=== PATIENT | male | born 1980 | race Caucasian/White ===

== ENCOUNTER 2019-11-28 22:15 | Emergency (ER) | payer SELFPAY ==
[2019-11-28 22:20] VITALS: BP 161/116; RESP 18; O2SAT 100; BMI 24.4
--- NOTE | 2019-11-28 22:21 | ED_ITS ---
Entered by Twila Klein, acting as scribe for Juan Leonard MD HPI - Abdominal Pain General: Chief Complaint: Abdominal Pain Stated Complaint: possible kidney stone Time Seen by Provider: 11/28/19 22:20 Source: patient and family Mode of arrival: ambulatory Limitations: no limitations History of Present Illness: HPI narrative: 39 y/o male presents to the ED with complaint of kidney stone pain. Pt states he has a hx of stones. He thought he passed some small stones this weekend, but his pain returned this evening. reports onset of extreme pain around 2029. Pt has been unable to urinate and has been doubled over in pain. He states it is the worst in this RLQ and radiates into his back. MD elicited complaint: flank pain Pertinent past history: kidney stones Onset (ago): hour(s) Pain Consistency: constant Location: RLQ and R flank Severity: similar to previous episodes Quality: cramping and stabbing Relieving factors: nothing Associated Symptoms: Reports nausea and vomiting; Denies chills, diarrhea and fever(s) Review of Systems Const: Denies: fever or chills Eyes: Denies: change in vision ENMT: Denies: throat pain or mouth pain Card: Denies: chest pain Resp: Denies: shortness of breath GI: Reports: abdominal pain, nausea and vomiting; Denies: diarrhea : Reports: flank pain and difficulty urinating Musc: Reports: back pain; Denies: joint pain Skin/Breast: Denies: rash Neuro: Denies: headache or behavioral changes Psych: Denies: depression Endo: Denies: excessive urination Bong/Lymph: Denies: easy bruising All/Imm: Denies: hives Physical Exam Const: COMMON NORMALS: no apparent distress, oriented x3 and healthy appearing HENMT: COMMON NORMALS: normocephalic and external nose normal HEAD & SCALP: normocephalic NOSE: external nose normal Eye: COMMON NORMALS: PERRL PUPIL: Yes PERRL Neck/C-Spine: COMMON NORMALS: full ROM and no lymphadenopathy Chest: COMMONS NORMALS: inspection of chest normal Resp: COMMON NORMALS: normal respiratory effort, no use of accessory muscles and clear to auscultation bilaterally AUSCULTATION: clear to auscultation bilaterally Cardio: COMMON NORMALS: regular rate and regular rhythm RATE: regular rate RHYTHM: regular rhythm GI: COMMON NORMALS: soft to palpation and no masses PALPATION: Yes soft, Yes tender and Yes guarding Back/Pelvis: OTHER: right flank tenderness Extremity: COMMON NORMALS: normal to inspection, full ROM and normal capillary refill Neuro: COMMON NORMALS: oriented x3 Psych: COMMON NORMALS: mental status grossly normal and cooperative Skin: COMMON NORMALS: no rashes or lesions noted GENERAL SKIN EXAM: no rashes or lesions noted Course Vital Signs: Vital signs: Vital Signs Temperature 97.5 F L 11/28/19 23:02 Pulse Rate 71 11/29/19 00:11 Respiratory Rate 16 11/29/19 00:23 Blood Pressure 120/85 11/29/19 00:11 Pulse Oximetry 96 11/29/19 00:11 MDM - Abdominal Pain MDM Narrative: Medical decision making narrative: Patient presents here with flank pain and has a history of kidney stone. Patient's history and exam is consistent with a likely kidney stone. Patient's pain is improved here and he does have hematuria. He has no signs of infection. Patient is stable for discharge and will prescribe Rosewood and Flomax. Patient is to follow-up with Dr. Brito and is to return if worsening. Lab Data: Labs: Lab Results 11/28/19 Range/Units 23:45 Urine Color Yellow (Yellow) Urine Appearance Hazy A (CLEAR) Urine pH 5 (5-7) Ur Specific Gravit y 1.020 (1.005-1.030) Urine Protein Neg (Negative) Urine Glucose (UA) Norm (Normal) Urine Ketones 1+ H (Negative) Urine Occult Blood 3+ H (Negative) Urine Nitrate Negative (Negative) Urine Bilirubin Neg (NEGATIVE) Urine Urobilinogen Norm (Negative) mg/dL Ur Leukocyte Elham ase Negative (Negative) Urine RBC 15-25 H (0-2) /hpf Urine WBC 0-4 H (0-5) /hpf Ur Squamous Epith Cells 0-4 H (0-5) Urine Bacteria Trace (NONE) Urine Mucus 2+ Discharge Plan Discharge Patient Disposition: Home, Self-Care Clinical Impression: Calculus of kidney Condition: Stable Prescriptions: New Rosewood 5-325 mg tablet 1 tab PO Q6H PRN (Reason: pain) Qty: 14 RF: 0 Flomax 0.4 mg capsule 0.4 mg PO DAILY Qty: 5 RF: 0 Discharge Orders: Discharge Order (Routine); Ordered 11/29/19 Ordered By: Juan Leonard Referrals: Uzma Fernando, BURR PICKER-C [Family Provider] - Fer Brito MD [Physician] - 1-3 days Dunaway,DENNIS Monteiro [Primary Care Provider] - Discharge Diet: Advance as tolerated Discharge Activity: Resume usual activity Patient Instructions: Kidney Stones (ED) Coding Level of Care Code ED Administration Intern for Chg Fwd Exam Problem Focused The documentation recorded by the Ernie andersen Ashley, accurately reflects the service I personally performed and the decisions made by Horacio lechuga Korby, MD Nov 28, 2019 22:15
--- NOTE | 2019-11-28 22:22 | XR_ITS ---
WS: [id number] KU, 11/28/2019 Clinical Data: abd pain Comparison: None. Findings: There is a left upper quadrant calcification which could be in the left kidney. No abnormal intra-abd ominal masses are seen. The small bowel loops are located in the central portion ,of the abdomen whic h can be seen with a severe ileus. There is a moderate amount of fecal material in the colon. No obst ruction is seen. XR/XR KUB [id number] Impression: 1. Possible left renal calcification. 2. Prominent central small bowel loops which can be seen with a severe ileus.
[2019-11-28 22:58] VITALS: RESP 16
[2019-11-28] MEDS: HYDROmorphone 1 mg/mL INJ 1 mL IVP (22:58)
[2019-11-28] MEDS: ketorolac 30 mg/mL INJ IVP (22:59)
[2019-11-28] MEDS: sodium chloride 0.9% 1,000 ML 999 ML IV (23:00)
[2019-11-28] MEDS: ondansetron 2 mg/ML SDV 2 mL 4 MG IVP (23:00)
[2019-11-28 23:02] VITALS: BP 144/103; PULSE 70; RESP 16; TEMP 36.4; O2SAT 95
--- NOTE | 2019-11-28 23:45 | PC.NURSE ---
Patient was able to output enough urine for a urine analysis, it was labeled and taken to lab. Patient requested for more water, water was given.
[2019-11-29 00:11] VITALS: BP 120/85; PULSE 71; RESP 16; O2SAT 96
--- NOTE | 2019-11-29 00:13 | PC.NURSE ---
Patient stated that the pain is slowly starting to return and would like something to keep the pain down.
[2019-11-29 00:16] LABS: Add Urine Microscopic? YES; Bilirubin Urine Neg (NEGATIVE); Blood Urine 3+ (Negative); Glucose Urine UA Norm (Normal); Ketones Urine 1+ (Negative); Leukocyte Esterase Urine Negative (Negative); Nitrate Urine Negative (Negative); Protein Urine Neg (Negative); Urine Appearance Hazy (CLEAR); Urine Color Yellow (Yellow); Urobilinogen Urine Norm (Negative); pH Urine 5 (5-7)
[2019-11-29 00:23] VITALS: RESP 16
[2019-11-29] MEDS: HYDROmorphone 1 mg/mL INJ 1 mL 0.5 MG IVP (00:23)
[2019-11-29] MEDS: sodium chloride 0.9% 1,000 ML 999 ML IV (00:24)
[2019-11-29 00:25] LABS: Add Urine Culture? Yes; Bacteria Urine TRACE; Mucus Urine 2+; RBC Urine 15-25 /hpf (0-2); Squamous Epithelial Cell Urine 0-4 (0-5); WBC Urine 0-4 /hpf (0-5)
[2019-11-29 01:15] VITALS: BP 119/86; PULSE 72; RESP 16; O2SAT 94
--- NOTE | 2019-11-29 14:30 | DCPLANNER ---
closing manager had message to schedule a follow up appointment for patient with the office of Dr. Brito. closing manager called the office of Dr. Brito, spoke with Monika, gave clinic patients information. A follow up appointment is scheduled for Monday, December 02, 2019 patient is to be at hospital at 9:30 for an X-Ray, then go to Dr. Hardy office for appointment. Clinic will call patient with appointment information.
--- NOTE | 2019-12-04 15:14 | DCPLANNER ---
Patient did attend appointment scheduled for 12.02.[address] Brito.
== END 2019-11-29 01:15 | disposition home or self-care (01) ==
PROVIDERS: Emergency Provider Emergency Medicine; Family Provider Nurse Practitioner; PCP Nurse Practitioner Family
DX: N20.0 Calculus of kidney (principal)
CPT/HCPCS: 74018; 81003; 87086; 96360; 96374; 99282; J1170; J1885; J2405; J7030

== ENCOUNTER 2019-12-03 13:57 | Outpatient (CLI) | payer SELFPAY ==
--- NOTE | 2019-12-03 14:08 | XRR_ITS ---
PROCEDURE INFORMATION: Exam: XR Abdomen, 1 View Exam date and time: 12/03/2019 2:24 PM Age: 39 years old Clinical indication: Other: Flank pain; Additional info: Right flank pain, history of kidney stones TECHNIQUE: Imaging protocol: XR of the abdomen. Views: Frontal supine view of the abdomen. 1 View. COMPARISON: CR XR KUB [id number] 11/28/2019 10:45 PM FINDINGS: Gastrointestinal tract: Normal. No bowel dilation. Bones/joints: Unremarkable. XR/XR KUB [id number] IMPRESSION: No acute findings.
== END 2019-12-03 13:58 | disposition home or self-care (01) ==
LOC: RAD 14:04
PROVIDERS: Family Provider Nurse Practitioner; Visit Provider Urology
DX: R10.9 Unspecified abdominal pain (principal)
CPT/HCPCS: 74018; 81001

== ENCOUNTER 2019-12-11 08:59 | Outpatient (CLI) | payer SELFPAY ==
--- NOTE | 2019-12-11 09:10 | CT_ITS ---
WS: [id number] CT ABDOMEN PELVIS TECHNIQUE: Noncontrast CT of the abdomen and pelvis with coronal and sagittal reformatted images. CLINICAL INFORMATION: FLANK PAIN COMPARISON: 9 8013 DLP: 878.[address] scans at [facility] use at least one of these dose optimization techniques: automat ed exposure control; mA and/or kV adjustment per patient size (includes targeted exams where dose is matched to clinical indication); or iterative reconstruction. FINDINGS: Noncontrast liver is normal. Normal spleen. Tiny esophageal hiatal hernia. Lung bases are well aerate d. Adrenal glands are normal. No adenopathy in the upper abdomen. Normal gallbladder. Bilateral renal cysts. No hydronephrosis. 2.1 cm right renal cyst. This is unchanged from previous. Smaller left carmina al cyst. Nonobstructing right calyceal tip calculus. Mild dilatation of the right distal ureter with small calculus at the right UVJ measuring 3.2 mm. Mil d dilatation of the right extrarenal pelvis. No obstructing left renal parenchymal or ureteral calcul i. Sigmoid diverticulosis. No evidence of acute diverticulitis. No evidence of small or large bowel obst ruction. CT/CT kidney stone [id number] IMPRESSION: 1. 3.2 mm obstructing right UVJ calculus with mild right ureterectasis. Mild d ilatation of the right extra renal pelvis. 2. Small bilateral renal cysts the largest in the right measuring 2.0 cm. 3. Small esophageal hiatal hernia. 4. Diverticulosis. No evidence of acute diverticulitis. 5. Normal caliber abdominal aorta.
== END 2019-12-11 09:00 | disposition home or self-care (01) ==
PROVIDERS: Family Provider Nurse Practitioner; Visit Provider Urology
DX: N20.1 Calculus of ureter (principal); N13.4 Hydroureter; N28.1 Cyst of kidney, acquired; K44.9 Diaphragmatic hernia without obstruction or gangrene; K57.90 Diverticulosis of intestine, part unspecified, without perforation or abscess without bleeding
CPT/HCPCS: 74176; 81001

== ENCOUNTER 2019-12-24 00:27 | Emergency (ER) | payer SELFPAY ==
[2019-12-24] VITALS (29 sets, daily range): BP systolic 129–176; BP diastolic 83–114; PULSE 74–77; RESP 16–20; TEMP 36.7; O2SAT 93–100; BMI 24.4
--- NOTE | 2019-12-24 00:39 | W.ED.ABDPA2 ---
HPI - Abdominal Pain General: Chief Complaint: Abdominal Pain Stated Complaint: KIDNEY STONE Time Seen by Provider: 12/24/19 00:37 History of Present Illness: HPI narrative: Patient is a 39-year-old male comes to the ED with right lower quadrant abdominal pain. Patient does have a history of kidney stones. Patient was seen here [address] showed kidney stone in the right uretervesicular junction. Patient saw Dr. Brito and he is been taking Flomax in an attempt to pass the stone himself. Patient states that intense pain started last night. Patient states pain is similar to his prior kidney stone. Pain is on the right flank. He states he had chills last night. He states he also has some right lower quadrant pain as well. Denies any fever, shortness of breath, chest pain, vomiting, diarrhea, constipation, dysuria, hematuria. Review of Systems General: Reports: 10 or more systems reviewed and unremarkable except in HPI and below PFSH ED PFSH: Statuses (acute, chronic, etc) shown below reflect problem list status as previously entered and may not be historically accurate Medical History Calculus of kidney Surgical History H/O shoulder surgery Family History Family/Other Cancer Prostate cancer CAD (coronary artery disease) Grandfather Prostate cancer Mother , AT AGE 31 Heart attack Social History Smoking and tobacco status: never smoked Alcohol intake: current Alcohol intake frequency: holidays/special occasions only Marital status: Current occupational status: employed Physical Exam Narrative: EXAM NARRATIVE: Patient is a 39-year-old male who was fidgeting and having trouble sitting still when I came into the exam room. He appeared to be in acute pain. Const: COMMON NORMALS: oriented x3 HENMT: COMMON NORMALS: normocephalic HEAD & SCALP: normocephalic MOUTH: oral and palatal mucosa normal THROAT: posterior oropharynx normal and uvula midline Neck/C-Spine: COMMON NORMALS: supple GENERAL: Yes normal visual inspection Resp: COMMON NORMALS: normal respiratory effort, no retractions, no use of accessory muscles and clear to auscultation bilaterally AUSCULTATION: clear to auscultation bilaterally Cardio: COMMON NORMALS: regular rate, regular rhythm, S1 normal heart sound, S2 normal heart sound, no gallops, no clicks, no murmurs and peripheral pulses 2+ throughout RATE: regular rate RHYTHM: regular rhythm HEART SOUNDS: S1 normal and S2 normal PERIPHERAL PULSES: pulses 2+ throughout GI: COMMON NORMALS: normal to inspection, nondistended, normoactive bowel sounds, soft to palpation and no masses PALPATION: Yes soft and Yes tender Details: RLQ : BLADDER/KIDNEY EXAM: Yes CVA tenderness Back/Pelvis: GENERAL BACK: Yes CVA tenderness CVA tenderness: right Extremity: COMMON NORMALS: normal to inspection Neuro: COMMON NORMALS: oriented x3 GAIT: Yes normal gait Skin: COMMON NORMALS: no rashes or lesions noted GENERAL SKIN EXAM: no rashes or lesions noted Course Consultations: Consultation #1: I spoke with Dr. Brito about the patient's case tonight. He said if the patient's pain is controlled and he wants to go home he would be fine with that. The patient can call his office in the morning to set up an appointment. Time: 02:50 Vital Signs: Vital signs: Vital Signs Temperature 98.1 F 12/24/19 00:29 Pulse Rate 74 12/24/19 03:12 Respiratory Rate 16 12/24/19 03:12 Blood Pressure 130/83 12/24/19 03:12 Pulse Oximetry 98 12/24/19 03:12 MDM - Abdominal Pain MDM Narrative: Medical decision making narrative: Patient is a 39-year-old male comes into the ED with right flank pain. 3 weeks ago patient was seen in the ED for right flank pain and diagnosed with calculi and right UVJ. He was seen by Dr. Brito the past couple weeks and he tried to pass kidney stones himself. Patient was taking Flomax. Last night and tonight the patient had intense right flank and right lower quadrant pain. CT of the abdomen and pelvis was performed and it showed that the renal calculi has not moved the last [address] Brito about patient's case tonight and he said patient Could be discharged if pain is controlled and pt can call his office in the morning to set up an appointment. Patient was discharged with a prescription for Toradol and told to call Dr. yo's office in the morning. Patient understood and agreed with plan. Lab Data: Attestation: I reviewed the patient's lab results. Labs: Lab Results 12/24/19 12/24/19 12/24/19 Range/Units 00:43 00:43 01:30 WBC 12.1 H (4.0-10.0) 10^3/ uL RBC 5.05 (4.1-5.3) 10^6/u L Hgb 15.8 (11.7-16.6) g/dL Hct 46.7 (42.0-52.0) % MCV 92.5 (80-94) fL MCH 31.3 (28.0-34.0) pg MCHC 33.8 (30.0-36.0) g/dL RDW 11.6 L (12.1-15.1) % Plt Count 271 (130-400) 10^3/c mm MPV 9.7 (7.4-10.4) fL Neut % (Auto) 73.0 % Lymph % (Auto) 15.9 % Ellsworth % (Auto) 9.8 % Eos % (Auto) 0.4 % Baso % (Auto) 0.7 % Neut # (Auto) 8.8 H (1.8-7.7) 10^3/u L Lymph # (Auto) 1.9 (0.8-4.8) 10^3/u L Ellsworth # (Auto) 1.2 H (0.2-0.9) 10^3/u L Eos # (Auto) 0.1 (0.0-0.8) 10^3/u L Baso # (Auto) 0.1 (0.0-0.1) 10^3/u L Nucleated RBC % (a uto) 0 % Nucleated RBCs # 0.0 /100WBC Sodium 135 L (136-145) mmol/L Potassium 3.6 (3.5-5.1) mmol/L Chloride 94 L (98-107) mmol/L Carbon Dioxide 25 (22-29) mmol/L Anion Gap 19.6 H (5-19) BUN 15 (6-20) mg/dL Creatinine 1.2 (0.7-1.2) mg/dL GFR Calculation 66.7 L (90-130) mL/min Glucose 120 H (65-115) mg/dL Calcium 10.0 (8.5-10.5) mg/dL Total Bilirubin 0.9 (0.15-1.2) mg/dL AST 36 (0-40) U/L ALT 53 H (0-41) U/L Alkaline Phosphata se 81 (40-130) IU/L Total Protein 8.1 (6.6-8.7) g/dL Albumin 4.8 (3.5-5.2) g/dL Globulin 3.3 (1.3-4.6) g/dL Lipase 29 (13-60) U/L Urine Color Yellow (Yellow) Urine Appearance Clear (CLEAR) Urine pH 6.5 (5-7) Ur Specific Gravit y 1.015 (1.005-1.030) Urine Protein Neg (Negative) Urine Glucose (UA) Norm (Normal) Urine Ketones 1+ H (Negative) Urine Occult Blood 3+ H (Negative) Urine Nitrate Negative (Negative) Urine Bilirubin Neg (NEGATIVE) Urine Urobilinogen Norm (Negative) mg/dL Ur Leukocyte Elham ase Negative (Negative) Urine RBC >100 H (0-2) /hpf Urine WBC None (0-5) /hpf Ur Squamous Epith Cells 0-4 H (0-5) Urine Bacteria 1+ H (NONE) Urine Mucus 1+ Imaging Data ^: CT Abd/Pel: Attestation: I personally reviewed and interpreted this imaging study as follows: Radiologist's impression: [place] [address] CT Scan Report Signed Patient: Aquilino Bauman Unit #: [id number] : 1980 Age/Sex: 39 / M ADM Date: 12/24/19 Loc: ER Room/Bed: Attending Dr: Ordering Provider/Ordering MD: Harley Catalan Date of Service: 12/24/19 Procedure(s): CT abdomen pelvis w con* [id number] Accession Number(s): [id number] Report Number: [id number] PROCEDURE INFORMATION: Exam: CT Abdomen And Pelvis With Contrast Exam date and time: 12/24/2019 1:26 AM Age: 39 years old Clinical indication: Abdominal pain; Flank; Right; Additional info: Rlq and right flank pain TECHNIQUE: Imaging protocol: Computed tomography of the abdomen and pelvis with intravenous contrast. Total DLP: 657.01 mGy-cm Radiation optimization: All CT scans at this facility use at least one of these dose optimization techniques: automated exposure control; mA and/or kV adjustment per patient size (includes targeted exams where dose is matched to clinical indication); or iterative reconstruction. Contrast material: OMNI 300; Contrast volume: 95 ml; Contrast route: IV; COMPARISON: CT abdomen pelvis w con* [id number] 07/21/2014 2:33 PM FINDINGS: Mild atelectasis at bilateral lung bases. The liver is diffusely hypodense relative to the spleen, consistent with fatty infiltration. The gallbladder, spleen, pancreas, and adrenal glands are unremarkable. There is a 2.2 cm cyst in the right kidney upper pole. There is a 0.3 cm stone in the right kidney lower pole. There is a 0.4 cm stone in the right lower ureter near the ureterovesicular junction (series 2, image 80). Mild right hydronephrosis. Moderate inflammatory change of the right perinephric fat. Several cysts in the left kidney, largest 2 cm in the upper pole. The appendix is not identified as a separate structure. No findings to suggest appendicitis. No evidence of bowel obstruction. No evidence of diverticulitis. No free intraperitoneal air or fluid identified. The bladder is unremarkable. The abdominal aorta is nonaneurysmal. Visualized bones are unremarkable. CT/CT abdomen pelvis w con* [id number] IMPRESSION: 1. Right lower ureteral stone measuring 0.4 cm. Mild right hydronephrosis. Radiation Dose CTDIVOL = (mGy): DLP = 657.01 (mGy-cm) Dictated By: Randall Messer MD Signed By: Randall Messer MD Signed Date/Time: 12/24/19221 DD/ 0 Discharge Plan Discharge Patient Disposition: Home, Self-Care Clinical Impression: Right distal ureteral calculus Condition: Stable Prescriptions: New ketorolac 10 mg tablet 10 mg PO Q8H Qty: 14 RF: 0 No Action hydrocodone-acetaminophen 5-325 mg tablet 1 tab PO .PRN RF: 0 Flomax 0.4 mg capsule 0.4 mg PO DAILY Qty: 30 RF: 1 Prilosec OTC 20 mg tablet,delayed release (DR/EC) 20 mg PO QDAY RF: 0 Discharge Orders: Discharge Order (Routine); Ordered 12/24/19 Ordered By: Harley Catalan Referrals: Uzma Fernando, DIRECTOR OF MANUFA[employer]URING-C [Family Provider] - NOT ON FILE,DOCTOR [Primary Care Provider] - Discharge Diet: Regular Discharge Activity: Resume usual activity Patient Instructions: Kidney Stones (ED) Activity Restrictions/Additional Instructions: Call Dr. Brito's office tomorrow morning to set up an appointment. Discontinue home with a prescription for ketorolac which you can use for breakout pain as needed. Drink plenty of fluids and make sure to strain urine to catch stone. Discharge Date/Time: 12/24/19 03:13 Coding Level of Care Code ED Buttermilk Drier Operator for Sin Euceda
[2019-12-24 00:49] LABS: Basophils # 0.1 10^3/uL (0.0-0.1); Basophils % 0.7 %; Eosinophils # 0.1 10^3/uL (0.0-0.8); Eosinophils % 0.4 %; Hematocrit 46.7 % (42.0-52.0); Hemoglobin 15.8 g/dL (11.7-16.6); Lymphocytes # 1.9 10^3/uL (0.8-4.8); Lymphocytes % 15.9 %; Mean Corpuscular HGB Conc 33.8 g/dL (30.0-36.0); Mean Corpuscular Hemoglobin 31.3 pg (28.0-34.0); Mean Corpuscular Volume 92.5 fL (80-94); Mean Platelet Volume 9.7 fL (7.4-10.4); Monocytes # 1.2 10^3/uL (0.2-0.9); Monocytes % 9.8 %; Neutrophils # 8.8 10^3/uL (1.8-7.7); Nucleated Red Blood Cells % 0 %; Platelet Count 271 10^3/cmm (130-400); Red Blood Count 5.05 10^6/uL (4.1-5.3); Red Cell Distribution Width 11.6 % (12.1-15.1); White Blood Count 12.1 10^3/uL (4.0-10.0)
[2019-12-24] MEDS: ondansetron 2 mg/ML SDV 2 mL 4 MG IVP (00:55)
[2019-12-24] MEDS: sodium chloride 0.9% 1,000 ML 999 ML IV (00:55)
[2019-12-24] MEDS: morphine 4 mg/mL SDV 1 mL IVP ×2 (00:55→01:16)
[2019-12-24 01:02] LABS: Alanine Aminotransferase 53 U/L (0-41); Albumin Level 4.8 g/dL (3.5-5.2); Alkaline Phosphatase 81 IU/L (40-130); Anion Gap 19.6 (5-19); Aspartate Amino Transferase 36 U/L (0-40); Blood Urea Nitrogen 15 mg/dL (6-20); Carbon Dioxide 25 mmol/L (22-29); Chloride 94 mmol/L (98-107); Globulin 3.3 g/dL (1.3-4.6); Glomerular Filtration Rate 66.7 mL/min (90-130); Glucose 120 mg/dL (65-115); Lipase 29 U/L (13-60); Potassium 3.6 mmol/L (3.5-5.1); Sodium 135 mmol/L (136-145); Total Bilirubin 0.9 mg/dL (0.15-1.2); Total Protein 8.1 g/dL (6.6-8.7)
[2019-12-24] MEDS: ketorolac 30 mg/mL INJ IVP (01:16)
--- NOTE | 2019-12-24 01:19 | CTR_ITS ---
PROCEDURE INFORMATION: Exam: CT Abdomen And Pelvis With Contrast Exam date and time: 12/24/2019 1:26 AM Age: 39 years old Clinical indication: Abdominal pain; Flank; Right; Additional info: Rlq and right flank pain TECHNIQUE: Imaging protocol: Computed tomography of the abdomen and pelvis with intravenous contrast. Total DLP: 657.01 mGy-cm Radiation optimization: All CT scans at this facility use at least one of these dose optimization techniques: automated exposure control; mA and/or kV adjustment per patient size (includes targeted exams where dose is matched to clinical indication); or iterative reconstruction. Contrast material: OMNI 300; Contrast volume: 95 ml; Contrast route: IV; COMPARISON: CT abdomen pelvis w con* [id number] 07/21/2014 2:33 PM FINDINGS: Mild atelectasis at bilateral lung bases. The liver is diffusely hypodense relative to the spleen, consistent with fatty infiltration. The gallbladder, spleen, pancreas, and adrenal glands are unremarkable. There is a 2.2 cm cyst in the right kidney upper pole. There is a 0.3 cm stone in the right kidney lower pole. There is a 0.4 cm stone in the right lower ureter near the ureterovesicular junction (series 2, image 80). Mild right hydronephrosis. Moderate inflammatory change of the right perinephric fat. Several cysts in the left kidney, largest 2 cm in the upper pole. The appendix is not identified as a separate structure. No findings to suggest appendicitis. No evidence of bowel obstruction. No evidence of diverticulitis. No free intraperitoneal air or fluid identified. The bladder is unremarkable. The abdominal aorta is nonaneurysmal. Visualized bones are unremarkable. CT/CT abdomen pelvis w con* [id number] IMPRESSION: 1. Right lower ureteral stone measuring 0.4 cm. Mild right hydronephrosis. Radiation Dose CTDIVOL = (mGy): DLP = 657.01 (mGy-cm)
[2019-12-24 01:47] LABS: Urine Appearance Clear (CLEAR); Urine Color Yellow (Yellow)
[2019-12-24 01:48] LABS: Protein Urine Neg (Negative); Specific Gravity, Urine 1.015 (1.005-1.030); pH Urine 6.5 (5-7)
[2019-12-24 01:49] LABS: Bilirubin Urine Neg (NEGATIVE); Blood Urine 3+ (Negative); Glucose Urine UA Norm (Normal); Ketones Urine 1+ (Negative); Leukocyte Esterase Urine Negative (Negative); Nitrate Urine Negative (Negative); Urobilinogen Urine Norm (Negative)
[2019-12-24 01:51] LABS: Add Urine Culture? Yes; Bacteria Urine 1+; Mucus Urine 1+; RBC Urine >100 /hpf (0-2); Squamous Epithelial Cell Urine 0-4 (0-5)
[2019-12-24] MEDS: iohexol 300 mg/mL 100 mL Btl IV (02:06)
--- NOTE | 2019-12-24 08:55 | DCPLANNER ---
pharmacy manager had message to schedule a follow up appointment with Dr. Brito. pharmacy manager called the office of Dr. Brito, spoke with Winnie, gave clinic patients information. pharmacy manager was told that patients information would be printed and given to Franci for review. Clinic will call patient with appointment information, director of casework will call for appointment information.
== END 2019-12-24 03:13 | disposition home or self-care (01) ==
PROVIDERS: Emergency Provider Physician Assistant; Family Provider Nurse Practitioner
DX: N20.1 Calculus of ureter (principal); Z87.442 Personal history of urinary calculi
CPT/HCPCS: 36415; 74177; 80053; 81001; 83690; 85025; 87086; 96361; 96374; 96375; 96376; 99283; J1885; J2270; J2405; J7030; Q9967

== ENCOUNTER 2019-12-25 09:47 | Outpatient (CLI) | payer SELFPAY ==
--- NOTE | 2019-12-25 09:45 | XRR_ITS ---
PROCEDURE INFORMATION: Exam: XR Abdomen, 1 View Exam date and time: 12/25/2019 9:52 AM Age: 39 years old Clinical indication: HX of kidney stones; Calculus of ureter TECHNIQUE: Imaging protocol: XR of the abdomen. Views: Frontal supine view of the abdomen. 1 View. COMPARISON: XR ABDOMEN 12/03/2019 2:[address] ABDOMEN/PELVIS 12/24/2019 2:13 AM FINDINGS: Gastrointestinal tract: No dilated gas-filled loops of bowel. Organs: There is a 2-3 mm calcific density overlying the inferior pole of the right kidney compatible with nephrolithiasis. The obstructing calculus at the right ureterovesical junction demonstrated on the recent CT scan cannot be from a phlebolith in the same location on the radiographs. Bones/joints: No acute osseous abnormality. XR/XR KUB [id number] IMPRESSION: 1. Right nephrolithiasis. 2. The recently demonstrated right ureterovesical junction calculus cannot be from right pelvic phleboliths. Therefore, if there is still concern that the calculus has not yet passed consider a repeat noncontrast CT ABDOMEN/PELVIS.
== END 2019-12-25 09:48 | disposition home or self-care (01) ==
LOC: RAD 09:49
PROVIDERS: Family Provider Nurse Practitioner; PCP Nurse Practitioner Family; Visit Provider Urology
DX: N20.1 Calculus of ureter (principal); N20.0 Calculus of kidney
CPT/HCPCS: 74018; 81001

== ENCOUNTER 2019-12-30 11:39 | Day surgery (SDC) | payer SELFPAY ==
[2019-12-27 14:47] VITALS: BMI 24.4
--- NOTE | 2019-12-27 15:04 | DCPLANNER ---
Patient had an appointment scheduled for 12.25.[address] Brito and patient did attend the appointment.
[2019-12-30] VITALS (7 sets, daily range): BP systolic 131–148; BP diastolic 88–98; PULSE 61–74; RESP 15–20; TEMP 36.5–36.6; O2SAT 94–99
--- NOTE | 2019-12-30 | SCC_ITS ---
Procedure Done: Cystoscopy, Right ureteroscopy, stone extraction, no stent 2.8 seconds of fluoroscopic guidance, for a cumulative dose of 0.47 mGy, was provided to Dr. Brito by the radiology department. C-arm images of the abdomen were saved for the patient's permanent record. [facility]
--- NOTE | 2019-12-30 11:41 | XR_ITS ---
WS: [id number] XR KUB [id number] REASON FOR EXAM: Preop right ureteroscopy FINDINGS: Sacralization with 4 functional lumbar vertebra . There is nonspecific gas and fecal stasis throughout the colon. No definite stones are seen in the ureters kidneys are bladder region. XR/XR KUB [id number] IMPRESSION: Nonspecific abdominal findings.
[2019-12-30] MEDS: sodium chloride 0.9% 1,000 ML 30 ML IV (12:33)
--- NOTE | 2019-12-30 12:33 | ANES.PREANE2 ---
Pre-Anesthetic Assessment Pre-Anesthetic Assessment: Height/Weight: Height 1.8 m Weight 79.379 kg Temp Pulse Resp BP Pulse Ox 97.9 F 66 18 137/98 99 12/30/19 12:25 12/30/19 12:20 12/30/19 12:20 12/30/19 12:20 12/30/19 12:20 Preop Diagnosis: Refractory right distal ureteral stone Proposed Procedure: Operation Date: 12/30/19 12:45 Proposed Procedures p Cystoscopy 86708 [id number] 43114 N20.0(Not Applicable) - Fer Brito MD s Retrograde Ureteropyelogram(Right) - MD eugenio Watson Flexible Ureteroscopy(Right) - MD eugenio Watson poss Laser Lithotripsy(Not Applicable) - MD eugenio Watson poss Ureteral Stent Placement(Not Applicable) - Fer Brito MD Last intake: Intake Last Liquid Date 12/29/19 Last Liquid Time 23:59 Last Solid Date 12/29/19 Last Solid Time 18:00 Social: Social History: Alcohol (occ) and Tobacco (chews) Exam: Pre-Anes Outpt Exam: alert, oriented x 3, clear to auscultation bilaterally and regular rate & rhythm Airway: Submandibular: WNL Cervical ROM: WNL MP: 2 Dentition: Other (teeth ok) History/ROS: No significant history except as noted Pulmonary: Pulmonary: None reported CV/HEM: CV/HEM: None reported : Comments: kidney stones Hepatic: Hepatic: None reported GI: GI: GERD (controlled) Metabolic: Metabolic: None reported Musc/skel: Musc/skel: None reported Neuropsych: Neuropsych: None reported Anesthetic Plan: ASA status: 3 Anesthesia: Anesthesia Evaluation and General Risk of > 500 ml blood loss (7ml/kg in children): No PFSH Anesthesia PFSH: Medical History Calculus of kidney Surgical History H/O shoulder surgery Family History Family/Other Cancer Prostate cancer CAD (coronary artery disease) Grandfather Prostate cancer Mother , AT AGE 31 Heart attack Social History Smoking and tobacco status: never smoked Alcohol intake: current Alcohol intake frequency: holidays/special occasions only Marital status: Current occupational status: employed History of recent travel: No Data Anesthesia Cardiac Studies: No Data to Display
--- NOTE | 2019-12-30 13:36 | W.PM.OPSUD ---
Surgery/Procedure H&P Update DATE OF PROCEDURE: December 30, 2019 DATE H&P PERFORMED: 12/25/19 H&P UPDATE INFORMATION: Changes to prior documentation as noted here CHANGES TO PREVIOUS DOCUMENTATION: On today's KUB the stone has progressed about an inch more distally. I reviewed the option for continued conservative management versus intervention as scheduled and after detailed discussion with his they both elected to proceed with endoscopic treatment as planned. PREOP DIAGNOSIS: Refractory right distal ureteral stone PLANNED PROCEDURE: Operation Date: 12/30/19 12:45 Proposed Procedures p Cystoscopy [id number] 39303 N20.0(Not Applicable) - Fer Brito MD s Retrograde Ureteropyelogram(Right) - MD eugenio Watson Flexible Ureteroscopy(Right) - MD eugenio Watson poss Laser Lithotripsy(Not Applicable) - MD eugenio Watson Ureteral Stent Placement(Not Applicable) - Fer Brito MD
--- NOTE | 2019-12-30 13:39 | P.OP_ITS ---
Operative Report Date of procedure: December 30, 2019 Pre-op Diagnosis: Refractory right distal ureteral stone Post-op diagnosis: same Procedure Done: Cystoscopy, Right ureteroscopy, stone extraction, no stent Pathology: other Pathology: Stone Surgeon: Daryl Anesthesia: General Estimated blood loss: Minimal Urine output: Not measured Complications: None Findings: Stone in the expected position based on the preop KUB. Removed without difficulty. Condition: stable Disposition: PACU Brief History: Patient is a very pleasant 39-year-old white male recently diagnosed with a right ureteral calculus confirmed on CT scan that on follow-up serial KUBs showed no significant progression while creating intermittent at times severe right renal colicky symptoms. Ultimately he chose to proceed with endoscopy for stone extraction with or without stent pending the intraoperative findings. KUB preoperatively showed the stone had moved somewhat distally. He was offered the opportunity to continue conservative management versus proceed with scheduled procedure and afternoon careful review of his options, benefits and risks, discussion with the spouse, he elected to proceed with surgical intervention as scheduled. Procedure: After routine preoperative evaluation examination and obtaining of informed consent he was taken to the operating suite on 12/30/2019 where general anesthesia was administered without difficulty after appropriate timeout was performed, SCDs confirmed to be functioning, preoperative antibiotics administered, beta-ronaldo protocol confirmed. Prepped and draped in usual sterile fashion in dorsolithotomy position pain careful attention to avoiding pressure points. 21 Bahraini cystoscope with 30 degree lens was introduced into urethral meatus and advanced into the bladder videoscopy. Bladder was systematically examined. No stone in the bladder. The stone could be seen just inside the ureteral orifice. A flexible grasper was passed through the cystoscope but could not secure the stone adequately and for that reason the 7.5 [place]i offset semirigid ureteroscope was easily advanced up the right ureter where the stone was encou ntered secured and grasping forceps and removed with no tension. Reinspection of the ureter showed minimal trauma or inflammatory change and for that reason it was decided to not leave a stent. The right ureteral orifice showed efflux. Bladder was drained and the procedure completed. Tolerated procedure well without complications and was awakened in the operating room and returned to recovery in stable condition. PLANS: 1. Follow-up in 6 months with KUB. 2. Focus on dietary modification for stone risk reduction as previously explained.
--- NOTE | 2019-12-30 13:42 | SC_ITS ---
WS: [id number] C-arm FL for Urology REASON FOR EXAM: CYSTO FINDINGS: Fluoroscopy utilization for urology provided the scope appears to be near the ureter. SC/C-arm FL for Urology IMPRESSION: Fluoroscopic guidance for urology study.
[2020-01-02 12:01] LABS: Stone Source RT URETER
== END 2019-12-30 15:15 ==
PROVIDERS: Family Provider Nurse Practitioner; PCP Nurse Practitioner Family; Visit Provider Urology
PROC: 0TJB8ZZ Inspection of Bladder, Via Natural or Artificial Opening Endoscopic (ICD-10-PCS; CPT 52000; principal; 2019-12-30 12:45)
PROC: 0TJ98ZZ Inspection of Ureter, Via Natural or Artificial Opening Endoscopic (ICD-10-PCS; CPT 52351; 2019-12-30 12:45)
DX: N20.1 Calculus of ureter (principal); Z82.49 Family history of ischemic heart disease and other diseases of the circulatory system; F17.220 Nicotine dependence, chewing tobacco, uncomplicated; K21.9 Gastro-esophageal reflux disease without esophagitis
CPT/HCPCS: 52352; 12345; 74018; 76000; 82365; 88300; J1100; J2001; J2405; J2704; J2710; J3010; J3490; J7030

== ENCOUNTER 2021-11-08 13:14 | Emergency (ER) | payer BC, SELFPAY ==
--- NOTE | 2021-11-08 13:26 | XR_ITS ---
WS: [id number] Portable AP upright chest, 11/08/2021 Clinical Data: chest pain Comparison: Portable chest, 03/13/2011. Findings: No nodules, masses or effusions are seen. The heart is normal. The pulmonary vascularity is not increased. No pneumonia or pneumothorax is seen. XR/XR chest 1V portable [id number] Impression: Negative chest.
--- NOTE | 2021-11-08 13:26 | ECG_ITS ---
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 Measurements Intervals [place] Rate: 56 P: 36 NC: 175 QRS: 51 QRSD: 93 T: 37 QT: 401 QTc: 388 Interpretive Statements SINUS BRADYCARDIA No previous ECG available for comparison Electronically Signed On 11-08-2021 15:18:16 CHARTER AND TOUR BUS DRIVER by Steffi Guevara M.D. [id number]
[2021-11-08 13:39] VITALS: BP 155/97; PULSE 62; RESP 16; O2SAT 96; BMI 26.1
[2021-11-08 15:16] LABS: Basophils # 0.1 10^3/uL (0.0-0.1); Basophils % 1.3 %; Eosinophils # 0.1 10^3/uL (0.0-0.8); Eosinophils % 0.9 %; Hematocrit 45.4 % (42.0-52.0); Hemoglobin 15.2 g/dL (11.7-16.6); Lymphocytes # 1.7 10^3/uL (0.8-4.8); Lymphocytes % 23.7 %; Mean Corpuscular HGB Conc 33.5 g/dL (30.0-36.0); Mean Corpuscular Hemoglobin 31.3 pg (28.0-34.0); Mean Corpuscular Volume 93.4 fl (80-94); Mean Platelet Volume 9.7 fL (7.4-10.4); Monocytes # 0.7 10^3/uL (0.2-0.9); Monocytes % 9.3 %; Neutrophils # 4.53 10^3/uL (1.8-7.7); Neutrophils % 64.5 %; Nucleated Red Blood Cells % 0 %; Platelet Count 194 10^3/cmm (130-400); Red Blood Count 4.86 10^6/uL (4.1-5.3); Red Cell Distribution Width 11.5 % (12.1-15.1)
[2021-11-08 15:37] LABS: Alanine Aminotransferase 29 U/L (0-41); Albumin Level 4.5 g/dL (3.5-5.2); Alkaline Phosphatase 72 IU/L (40-130); Aspartate Amino Transferase 21 U/L (0-40); Blood Urea Nitrogen 9 mg/dL (6-20); Calcium 8.4 mg/dL (8.5-10.5); Carbon Dioxide 27 mmol/L (22-29); Chloride 103 mmol/L (98-107); Glomerular Filtration Rate 92.5 mL/min (90-130); Glucose 84 mg/dL (65-115); Osmolality Calculated 290 mOsm/kg (285-295); Sodium 141 mmol/L (136-145); Total Bilirubin 0.4 mg/dL (0.15-1.2); Total Protein 7.5 g/dL (6.6-8.7)
[2021-11-08 15:38] LABS: Troponin(5th) Baseline 6 ng/L (0-15)
[2021-11-08 15:39] LABS: Anion Gap 15.2 (5-19); Potassium 4.2 mmol/L (3.5-5.1)
[2021-11-08 17:30] LABS: Troponin 5 2HR Delta 0 ABS# (0-10)
[2021-11-08 18:18] VITALS: BP 142/107; PULSE 57; RESP 20; O2SAT 98
--- NOTE | 2021-11-08 18:54 | W.ED.CHESTPA ---
HPI - Chest Pain General: Chief Complaint: Chest Pain Stated Complaint: CHEST PAIN/HIGH BP/SENT FROM [facility],T Time Seen by Provider: 11/08/21 18:07 Source: patient Mode of arrival: ambulatory Limitations: no limitations History of Present Illness: HPI narrative: 40-year-old male states that over the last 4 to 5 months he has been having some intermittent chest pains along with shortness of breath. He states he is seen his nurse practitioner who is getting cardiology follow-up he states over the last 2 weeks he has had increasing shortness of breath especially exertional dyspnea denies any pain currently denies any dyspnea at rest he states he is just getting concerned about his heart or possible blood clot. Denies any fever denies any recent illness no drug use. Patient is resting comfortably able to speak in full sentences. Associated symptoms: Reports dyspnea; Deny abdominal pain, fever(s), nausea or vomiting Review of Systems Const: Denies: fever(s), chills, body aches or change in appetite Eyes: Denies: blurry vision or eye discomfort ENMT: Denies: throat pain or dental pain Card: Reports: chest pain Resp: Reports: dyspnea GI: Denies: abdominal pain, nausea, vomiting or diarrhea : Denies: dysuria Musc: Denies: neck pain or back pain Skin/Breast: Denies: rash Neuro: Denies: headache(s) Psych: Denies: depression Bong/Lymph: Denies: easy bruising All/Imm: Denies: urticaria PFSH ED PFSH: Medical History (Updated 11/08/21 @ 19:02 by Juan Leonard MD) Calculus of kidney Surgical History H/O shoulder surgery Family History Family/Other Cancer Prostate cancer CAD (coronary artery disease) Grandfather Prostate cancer Mother , AT AGE 31 Heart attack Social History Smoking and tobacco status: never smoked Alcohol intake: current Alcohol intake frequency: holidays/special occasions only Marital status: Current occupational status: employed History of recent travel: No Physical Exam Const: COMMON NORMALS: no acute distress, patient oriented x3 and healthy appearing HENMT: COMMON NORMALS: normocephalic and atraumatic HEAD & SCALP: normocephalic and atraumatic Eye: COMMON NORMALS: Equal, round and reactive pupils present and EOMs intact bilaterally PUPIL: Yes Equal, round and reactive pupils present Neck/C-Spine: COMMON NORMALS: full ROM and supple Chest: COMMONS NORMALS: normal inspection of the chest and normal palpation of entire chest wall Resp: COMMON NORMALS: normal respiratory effort, No retractions, No use of accessory muscles and clear to auscultation bilaterally AUSCULTATION: clear to auscultation bilaterally Cardio: COMMON NORMALS: regular rate, regular rhythm and No murmurs present (Cardio) RATE: regular rate RHYTHM: regular rhythm GI: COMMON NORMALS: Normal to inspection, nondistended, normoactive bowel sounds present, Soft to palpation, non-tender and no masses PALPATION: Yes Soft to palpation Extremity: COMMON NORMALS: normal to inspection and full ROM Neuro: COMMON NORMALS: patient oriented x3, moves all extremities and no focal motor deficits Psych: COMMON NORMALS: mental status grossly normal, Normal thought process present and cooperative THOUGHT PROCESS: Normal thought process present Skin: COMMON NORMALS: no rashes or lesions noted and no wounds GENERAL SKIN EXAM: no rashes or lesions noted Course Vital Signs: Vital signs: Vital Signs Temperature 98.1 F 11/08/21 19:32 Pulse Rate 78 11/08/21 19:32 Respiratory Rate 18 11/08/21 19:32 Blood Pressure 119/84 11/08/21 19:32 Pulse Oximetry 97 11/08/21 19:32 MDM - Chest Pain MDM Narrative: Medical decision making narrative: Patient presents for chest pain dyspnea going on for quite some time troponins EKG and D-dimer here are all negative no signs of dissection or pulmonary embolism or acute coronary syndrome we will get him follow-up with cardiology and he is return if worsening he understands agrees to plan. Lab Data: Labs: Lab Results 11/08/21 11/08/21 11/08/21 15:01 15:01 15:01 WBC 7.0 10^3/uL 10^3/ uL (4.0-10.0) RBC 4.86 10^6/uL 10^6 /uL (4.1-5.3) Hgb 15.2 g/dL g/dL (11.7-16.6) Hct 45.4 % % (42.0-52.0) MCV 93.4 fl fl (80-94) MCH 31.3 pg pg (28.0-34.0) MCHC 33.5 g/dL g/dL (30.0-36.0) RDW 11.5 % L % (12.1-15.1) Plt Count 194 10^3/cmm 10^3 /cmm (130-400) MPV 9.7 fL fL (7.4-10.4) Neut % (Auto) 64.5 % % Lymph % (Auto) 23.7 % % [place] % (Auto) 9.3 % % Eos % (Auto) 0.9 % % Baso % (Auto) 1.3 % % Neut # (Auto) 4.53 10^3/uL 10^3 /uL (1.8-7.7) Lymph # (Auto) 1.7 10^3/uL 10^3/ uL (0.8-4.8) [place] # (Auto) 0.7 10^3/uL 10^3/ uL (0.2-0.9) Eos # (Auto) 0.1 10^3/uL 10^3/ uL (0.0-0.8) Baso # (Auto) 0.1 10^3/uL 10^3/ uL (0.0-0.1) Nucleated RBC % (a uto) 0 % % Nucleated RBCs # 0.0 /100WBC /100W BC D-Dimer Sodium 141 mmol/L mmol/L (136-145) Potassium 4.2 mmol/L mmol/L (3.5-5.1) Chloride 103 mmol/L mmol/L (98-107) Carbon Dioxide 27 mmol/L mmol/L (22-29) Anion Gap 15.2 (5-19) BUN 9 mg/dL mg/dL (6-20) Creatinine 0.9 mg/dL mg/dL (0.7-1.2) GFR Calculation 92.5 mL/min mL/mi n (90-130) Glucose 84 mg/dL mg/dL (65-115) Calculated Osmolal ity 290 mOsm/kg mOsm/ kg (285-295) Calcium 8.4 mg/dL L mg/dL (8.5-10.5) Total Bilirubin 0.4 mg/dL mg/dL (0.15-1.2) AST 21 U/L U/L (0-40) ALT 29 U/L U/L (0-41) Alkaline Phosphata se 72 IU/L IU/L (40-130) Troponin T Baselin e 6 ng/L ng/L (0-15) Troponin T 120 Min [place] Troponin T Total Protein 7.5 g/dL g/dL (6.6-8.7) Albumin 4.5 g/dL g/dL (3.5-5.2) Globulin 3.0 g/dL g/dL (1.3-4.6) 11/08/21 11/08/21 17:02 18:25 WBC RBC Hgb Hct MCV MCH MCHC RDW Plt Count MPV Neut % (Auto) Lymph % (Auto) [place] % (Auto) Eos % (Auto) Baso % (Auto) Neut # (Auto) Lymph # (Auto) [place] # (Auto) Eos # (Auto) Baso # (Auto) Nucleated RBC % (a uto) Nucleated RBCs # D-Dimer 0.35 ug/mIFEU ug/ mIFEU (0-0.59) Sodium Potassium Chloride Carbon Dioxide Anion Gap BUN Creatinine GFR Calculation Glucose Calculated Osmolal ity Calcium Total Bilirubin AST ALT Alkaline Phosphata se Troponin T Baselin e Troponin T 120 Min [place] 6.00 ng/L ng/L (0-15) Delta Troponin T 0 ABS# ABS# (0-10) Total Protein Albumin Globulin Imaging Data^: CXR: Attestation: I personally reviewed and interpreted this imaging study as follows: My impression: no acute abnormality EKG Data^: EKG 1: Attestation: I personally reviewed and interpreted this EKG as follows: EKG interpretation date: 11/08/21 EKG interpretation time: 18:13 Interpretation: sinus monse hr [address] or t wave abnormalities qrs 93 qtc 401 Discharge Plan Discharge Patient Disposition: Home Clinical Impression: Chest pain Qualifiers: Chest pain type: unspecified Qualified Code(s): R07.9 - Chest pain, unspecified Condition: Stable Prescriptions: No Action hydrocodone-acetaminophen 5-325 mg tablet 1 tab PO .PRN RF: 0 Prilosec OTC 20 mg tablet,delayed release (DR/EC) 20 mg PO QDAY RF: 0 ketorolac 10 mg tablet 10 mg PO Q8H Qty: 14 RF: 0 Discharge Orders: Discharge ED (Routine); Ordered 11/08/21 Ordered By: Juan Leonard Referrals: Pamella Tapia MD [Physician] - 1-3 days Dunaway,DEWEY Guerrero [Primary Care Provider] - Discharge Diet: Advance as tolerated Discharge Activity: Resume usual activity Patient Instructions: Chest Pain (ED) Coding Level of Care Code ED 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
[2021-11-08 18:58] LABS: D Dimer 0.35 ug/mIFEU (0-0.59)
--- NOTE | 2021-11-08 19:26 | ECG_ITS ---
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 Measurements Intervals [place] Rate: 55 P: 30 MT: 193 QRS: 50 QRSD: 93 T: 33 QT: 412 QTc: 395 Interpretive Statements SINUS BRADYCARDIA Compared to ECG 11/08/2021 14:51:22 No significant changes Electronically Signed On 11-08-2021 22:32:19 MODERN LANGUAGES PROFESSOR by Steffi Guevara M.D. [id number]
[2021-11-08 19:32] VITALS: BP 119/84; PULSE 78; RESP 18; TEMP 36.7; O2SAT 97
--- NOTE | 2021-11-10 10:32 | DCPLANNER ---
rainbow trout farm manager had message to schedule a follow up appointment for patient with [facility]. rainbow trout farm manager called [facility], spoke with Belia, gave clinic patients information. A follow up appointment was scheduled for Tuesday, November 16, 2021 at 2:[address] Tapia. rainbow trout farm manager called and spoke with patients , gave her the appointment information. rainbow trout farm manager was told that patient would attend the appointment.
== END 2021-11-08 19:33 | disposition home or self-care (01) ==
PROVIDERS: Physician Assistant; Emergency Provider Emergency Medicine; PCP Nurse Practitioner Family
DX: R07.9 Chest pain, unspecified (principal)
CPT/HCPCS: 36415; 71045; 80053; 84484; 85025; 85378; 93005; 99283

== ENCOUNTER 2021-11-15 23:24 | Emergency (ER) | payer BC, SELFPAY ==
[2021-11-15 23:30] VITALS: BP 146/97; PULSE 80; RESP 18; TEMP 36.8; O2SAT 98; BMI 24.9
--- NOTE | 2021-11-16 00:14 | ECG_ITS ---
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 Measurements Intervals [place] Rate: 74 P: 68 [place]: 168 QRS: 73 QRSD: 91 T: 64 QT: 371 QTc: 414 Interpretive Statements SINUS RHYTHM Compared to ECG 11/08/2021 18:13:46 Sinus bradycardia no longer present Electronically Signed On 11-16-2021 13:03:36 PIPE LINE GAUGER by Steffi Guevara M.D. [id number]
[2021-11-16 01:34] VITALS: BP 134/97; O2SAT 98
--- NOTE | 2021-11-16 01:45 | W.ED.CHESTPA ---
HPI - Chest Pain General: Chief Complaint: Chest Pain Stated Complaint: CHEST PAIN, High BP Time Seen by Provider: 11/16/21 01:45 History of Present Illness: HPI narrative: Mr Bauman is a 40-year-old gentleman with history of tobaccoism who presents to the emergency department with chest pain. He reports being at his work, sitting at a desk, when he had onset of symptoms at about 830. He endorses midsternal chest aching with radiation to the neck. Mild associated palpitations. Does endorse lightheadedness and generalized malaise however no other typical cardiac features. He began having similar episodes about 6 months ago initially just with palpitations however they have subsequently became worse and more frequent. He cannot think of any other specific provoking factors. No other changes in health. He is scheduled to see cardiology today at 3 PM. No other specific exacerbating, alleviating, or changes in health identified. Patient does have positive family history for his mother dying at 31 of a heart attack. Review of Systems General: Reports: 10 or more systems reviewed and unremarkable except in HPI and below PFSH ED PFSH: Medical History Calculus of kidney Surgical History H/O shoulder surgery Family History Family/Other Cancer Prostate cancer CAD (coronary artery disease) Grandfather Prostate cancer Cancer Dementia Mother , AT AGE 31, [place] Heart attack CAD (coronary artery disease) Grandmother Cancer Father Chronic kidney disease (CKD) Denies family history of Diabetes Clotting disorder Suicide Anesthesia complication Bleeding disorder Lung disease Stroke Social History Smoking and tobacco status: current every day smoker smokeless tobacco Alcohol intake: current Alcohol intake frequency: holidays/special occasions only Marital status: Current occupational status: employed History of recent travel: No Physical Exam Narrative: EXAM NARRATIVE: GENERAL/CONSTITUTIONAL -mildly ill-appearing. Eyes - PERRL, no conjunctival injection ENMT - Atraumatic external nose and ears. Moist mucous membranes NECK - supple. trachea midline CARDIOVASCULAR - regular rate and rhythm. Chest pain not RESPIRATORY -clear to auscultation bilaterally. No retractions or accessory muscle use. ABDOMEN/GI - Nontender/Nondistended. No tenderness to percussion or evidence of peritonitis MSK - Extremities without obvious deformity or tenderness to palpation SKIN - Warm, Dry NEURO - alert and appropriately oriented. Moves all extremities equally. Course ED course: - Patient was seen and evaluated by me at bedside - Patient placed on cardiac monitors, IV access obtained - Initial evaluation notable for exam as above - Labs notable for no leukocytosis, overall hemoconcentration. No acute electrolyte abnormality to explain patient's symptoms. Delta troponin negative. - Imaging notable for negative chest x-ray - Upon serial reexamination after treatment the patient was similar - Based on patient history, evaluation, labs, and imaging as interpreted the most likely cause of the patient's condition is chest pain of uncertain etiology - The results of ED evaluation were discussed with the patient including prescriptions and/or symptomatic cares (if applicable) including appropriate and responsible use, followup plan, and return precautions. The patient verbalized understanding and felt safe for discharge. - Patient discharged in satisfactory condition. Reevaluation(s): Reevaluation #1: 40-year-old gentleman presenting with chest pain. Negative x-ray and delta troponin. Is a smoker and does have positive family history therefore requires further outpatient evaluation by heart score. Satisfactory for discharge. Vital Signs: Vital signs: Vital Signs Temperature 98.3 F 11/15/21 23:30 Pulse Rate 76 11/16/21 05:12 Respiratory Rate 18 11/16/21 05:12 Blood Pressure 142/96 11/16/21 05:12 Pulse Oximetry 97 11/16/21 05:12 MDM - Chest Pain Medical Records: Attestation: I reviewed the patient's medical records. Lab Data: Attestation: I reviewed the patient's lab results. Labs: Lab Results 11/16/21 11/16/21 11/16/21 01:40 01:40 01:40 WBC 7.5 10^3/uL 10^3/ uL (4.0-10.0) RBC 5.33 10^6/uL H 10 ^6/uL (4.1-5.3) Hgb 16.7 g/dL H g/dL (11.7-16.6) Hct 50.2 % % (42.0-52.0) MCV 94.2 fl H fl (80-94) MCH 31.3 pg pg (28.0-34.0) MCHC 33.3 g/dL g/dL (30.0-36.0) RDW 11.4 % L % (12.1-15.1) Plt Count 286 10^3/cmm 10^3 /cmm (130-400) MPV 9.7 fL fL (7.4-10.4) Neut % (Auto) 62.5 % % Lymph % (Auto) 26.8 % % [place] % (Auto) 7.2 % % Eos % (Auto) 1.9 % % Baso % (Auto) 1.3 % % Neut # (Auto) 4.71 10^3/uL 10^3 /uL (1.8-7.7) Lymph # (Auto) 2.0 10^3/uL 10^3/ uL (0.8-4.8) [place] # (Auto) 0.5 10^3/uL 10^3/ uL (0.2-0.9) Eos # (Auto) 0.1 10^3/uL 10^3/ uL (0.0-0.8) Baso # (Auto) 0.1 10^3/uL 10^3/ uL (0.0-0.1) Nucleated RBC % (a uto) 0 % % Nucleated RBCs # 0.0 /100WBC /100W BC Sodium 138 mmol/L mmol/L (136-145) Potassium 4.2 mmol/L mmol/L (3.5-5.1) Chloride 99 mmol/L mmol/L (98-107) Carbon Dioxide 27 mmol/L mmol/L (22-29) Anion Gap 16.2 (5-19) BUN 9 mg/dL mg/dL (6-20) Creatinine 0.9 mg/dL mg/dL (0.7-1.2) GFR Calculation 92.5 mL/min mL/mi n (90-130) Glucose 93 mg/dL mg/dL (65-115) Calculated Osmolal ity 284 mOsm/kg L mOs m/kg (285-295) Calcium 8.7 mg/dL mg/dL (8.5-10.5) Troponin T Baselin e 6 ng/L ng/L (0-15) Troponin T 120 Min [place] Troponin T 11/16/21 04:05 WBC RBC Hgb Hct MCV MCH MCHC RDW Plt Count MPV Neut % (Auto) Lymph % (Auto) [place] % (Auto) Eos % (Auto) Baso % (Auto) Neut # (Auto) Lymph # (Auto) [place] # (Auto) Eos # (Auto) Baso # (Auto) Nucleated RBC % (a uto) Nucleated RBCs # Sodium Potassium Chloride Carbon Dioxide Anion Gap BUN Creatinine GFR Calculation Glucose Calculated Osmolal ity Calcium Troponin T Baselin e Troponin T 120 Min [place] 6.00 ng/L ng/L (0-15) Delta Troponin T 0 ABS# ABS# (0-10) EKG Data^: EKG 1: Attestation: I personally reviewed and interpreted this EKG as follows: EKG interpretation date: 11/16/21 EKG interpretation time: 02:15 Interpretation: Twelve-lead EKG shows a regular rhythm at a rate of 69. [place] interval 183, QRS duration 106, QTc 407. Normal axis. Interpretation: Sinus rhythm. EKG 2: Attestation: I personally reviewed and interpreted this EKG as follows: EKG interpretation date: 11/15/21 EKG interpretation time: 23:44 Interpretation: Twelve-lead EKG shows a regular rhythm at a rate of 74. [place] interval 168, QRS duration 91, QTc 399. Normal axis. Interpretation: Sinus rhythm. Discharge Plan Discharge Patient Disposition: Home Clinical Impression: Chest pain Qualifiers: Chest pain type: unspecified Qualified Code(s): R07.9 - Chest pain, unspecified Condition: Stable Prescriptions: No Action pantoprazole 40 mg tablet,delayed release (DR/EC) 40 mg PO DAILY RF: 0 famotidine 40 mg tablet 40 mg PO DAILY RF: 0 Discharge Orders: Discharge ED (Routine); Ordered 11/16/21 Ordered By: Chung Redding Referrals: Yolanda Dunaway APN [Primary Care Provider] - Discharge Diet: Usual diet Discharge Activity: Resume usual activity Patient Instructions: Chest Pain (ED) Activity Restrictions/Additional Instructions: Thank you for visiting the emergency department. You were seen and evaluated for chest pain. The exact cause of your symptoms is unclear. Given your risk factors I definitely recommend attending your cardiology appointment today and certainly following any of their recommendations though I will also help arrange scheduling for an echocardiogram and stress test if that is what they desire. Return to the emergency department for worsening symptoms or anything else that you are concerned about a feel needs emergency department evaluation. 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
--- NOTE | 2021-11-16 01:57 | XRR_ITS ---
PROCEDURE INFORMATION: Exam: XR Chest Exam date and time: 11/16/2021 1:57 AM Age: 40 years old Clinical indication: Chest pressure; Patient HX: C/O chest pain with palpitations. Hypertensive. TECHNIQUE: Imaging protocol: XR of the chest. Views: 1 view. COMPARISON: CR XR chest 1V portable [id number] 11/08/2021 1:34 PM FINDINGS: Lungs: Unremarkable. No consolidation. Pleural spaces: Unremarkable. No pleural effusion. No pneumothorax. Heart/Mediastinum: Stable cardiomediastinal silhouette. Bones/joints: Unremarkable. XR/XR chest 1V portable [id number] IMPRESSION: No evidence of active cardiopulmonary disease.
[2021-11-16 02:00] LABS: Basophils # 0.1 10^3/uL (0.0-0.1); Basophils % 1.3 %; Eosinophils # 0.1 10^3/uL (0.0-0.8); Eosinophils % 1.9 %; Hematocrit 50.2 % (42.0-52.0); Hemoglobin 16.7 g/dL (11.7-16.6); Lymphocytes % 26.8 %; Mean Corpuscular HGB Conc 33.3 g/dL (30.0-36.0); Mean Corpuscular Hemoglobin 31.3 pg (28.0-34.0); Mean Corpuscular Volume 94.2 fl (80-94); Mean Platelet Volume 9.7 fL (7.4-10.4); Monocytes # 0.5 10^3/uL (0.2-0.9); Monocytes % 7.2 %; Neutrophils # 4.71 10^3/uL (1.8-7.7); Neutrophils % 62.5 %; Nucleated Red Blood Cells % 0 %; Platelet Count 286 10^3/cmm (130-400); Red Blood Count 5.33 10^6/uL (4.1-5.3); Red Cell Distribution Width 11.4 % (12.1-15.1); White Blood Count 7.5 10^3/uL (4.0-10.0)
--- NOTE | 2021-11-16 02:14 | ECG_ITS ---
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 Measurements Intervals [place] Rate: 69 P: 57 ME: 183 QRS: 76 QRSD: 106 T: 62 QT: 388 QTc: 417 Interpretive Statements SINUS RHYTHM Compared to ECG 11/15/2021 23:38:26 No significant changes Electronically Signed On 11-16-2021 13:15:58 SONOGRAPHER by Steffi Guevara M.D. [email or web address]/store/[id number]
[2021-11-16 02:18] LABS: Troponin(5th) Baseline 6 ng/L (0-15)
[2021-11-16 02:19] LABS: Anion Gap 16.2 (5-19); Blood Urea Nitrogen 9 mg/dL (6-20); Calcium 8.7 mg/dL (8.5-10.5); Carbon Dioxide 27 mmol/L (22-29); Chloride 99 mmol/L (98-107); Glomerular Filtration Rate 92.5 mL/min (90-130); Glucose 93 mg/dL (65-115); Osmolality Calculated 284 mOsm/kg (285-295); Potassium 4.2 mmol/L (3.5-5.1); Sodium 138 mmol/L (136-145)
[2021-11-16 02:24] VITALS: BP 127/92; RESP 18; O2SAT 95
[2021-11-16 03:34] VITALS: BP 131/90; RESP 18; O2SAT 95
[2021-11-16 04:24] VITALS: BP 122/92; RESP 18; O2SAT 98
[2021-11-16 04:49] LABS: Troponin 5 2HR Delta 0 ABS# (0-10)
[2021-11-16 05:12] VITALS: BP 142/96; PULSE 76; RESP 18; O2SAT 97
--- NOTE | 2021-11-16 14:50 | DCPLANNER ---
Addendum entered by Joan Hicks 05/01/22 06:47: Patient had a stress test scheduled for 04.20.22 - patient did attend appointment. Patient had an outpatient echo scheduled for 04.25.22 - patient did attend appointment. Addendum entered by Joan Hicks 04/08/22 19:45: Patient has a stress test scheduled for Wednesday, April 20, 2022 at 11:30. Centralized scheduling will call patient with appointment information. Patient has a echo scheduled for Monday, April 25, 2022 at 9:30. Centralized scheduling will call patient with appointment information. Addendum entered by Joan Hicks 12/16/21 16:34: Patient had a follow up appointment scheduled for 11.16.21 with [facility] - patient did attend appointment. Original Note: human resources assistant manager had message to schedule an outpatient stress test and echo for patient. human resources assistant manager faxed signed order to centralized scheduling, who will call patient appointment information.
== END 2021-11-16 05:09 | disposition home or self-care (01) ==
PROVIDERS: Emergency Provider Emergency Medicine; PCP Nurse Practitioner Family
DX: R07.9 Chest pain, unspecified (principal); F17.210 Nicotine dependence, cigarettes, uncomplicated
CPT/HCPCS: 71045; 80048; 84484; 85025; 93005; 99283

== ENCOUNTER 2022-04-20 09:01 | Outpatient (CLI) | payer BC, SELFPAY ==
--- NOTE | 2022-04-20 09:09 | ECG_ITS ---
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 Interpretive Statements NAME OF STUDY: LEXISCAN SESTAMIBI STRESS TEST INDICATION: Chest Pain PROCEDURE: At the baseline, the blood pressure was 117/72 mmHg with a heart rate of 51 bpm. The electrocardiogram showed normal sinus rhythm, normal axis with nonspecific ST changes. The Lexiscan was infused over a period of 20 seconds. A total of 0.4 milligrams of Lexiscan was infused. The stress phase was continued for a total of 5 minutes. Heart rate at the end of the stress phase was 84 bpm with a blood pressure of 115/75 mmHg. The EKG at the peak infusion revealed sinus rhythm with nonspecific T wave inversion in lead III. The study was terminated due to protocol completion. Sestamibi was injected 20 seconds after the Lexiscan infusion. Blood pressure at the end of the recovery phase was 119/77 mmHg with a heart rate of 81 beats per minute. CONCLUSION: 1. No significant EKG changes with the LexiScan infusion. 2. No LexiScan induced chest pain or cardiac arrhythmia. 3. Normal blood pressure and heart rate response. 4. Sestamibi/sestamibi perfusion scan pending; see separate report. Electronically Signed On 04-28-2022 13:51:43 CDT by Steffi Guevara M.D. [id number]
--- NOTE | 2022-04-20 09:09 | NMCV_ITS ---
NM luis perf SPECT r/s* [id number] Aquilino Bauman Age: 41 Gender: M : 1980 Exam Date: 04/20/2022 10:18 Ordering Phys: Blayne Stein DO Technologist: PRESTON Blas Exam Location: [facility] Indications: CHEST PAIN STRESS TEST Please [facility] IMAGE PROTOCOL Rest/Stress 1 Lexiscan Day Radiopharmaceutical Dose (mCi) Administration Site Administered by Rest: Tc-99m 11.0 IV PRESTON Zacarias Sestamibi Stress:Tc-99m 32.7 IV PRESTON Zacarias Sestamibi Rest: 60 Discovery 630 Stress: 30 Discovery 630 0.4mg Lexiscan. Images obtained in supine and prone position. SPECT RESULTS Technical Quality: Excellent Raw Data Analysis: Normal Image Corrections: No attenuation or motion correction applied Summed Stress Score: 3 Summed Rest Score: 0 Summed Difference Score: 3 PERFUSION FINDINGS Small size perfusion abnormality of mild severity of mid inferior and mid inferolateral wall on stress images. FUNCTIONAL RESULTS (calculated via Gated SPECT) Stress Image LV EF (%): 55 Stress EDV (mL):117 TID: 1.11 Stress ESV (mL):53 FUNCTIONAL FINDINGS: The left ventricle is normal in size. Transient Ischemia Dilatation of 1.1. There is normal left ventricular systolic function. The left ventricular ejection fraction is normal with a value of 55%. There is normal left ventricular wall thickening. IMPRESSIONS 1. Small sized reversible perfusion abnormality of mild severity of mid inferior and mid inferolateral melton. 2. This may represent small area of ischemia in the right coronary artery territory. 3. Overall left ventricular systolic function is normal without regional wall motion abnormalities, LVEF=55%. 4. EKG portion of the study will be reported separately. Steffi Guevara MD (Electronically Signed) Final Date: 28 April 2022 13:06 S
[2022-04-20 09:19] VITALS: BMI 24.5
[2022-04-20] MEDS: regadenoson 0.4 Mg/5 ml Syringe IVP (10:44)
[2022-04-20 11:02] VITALS: BP 119/77; PULSE 83
== END 2022-04-20 09:02 | disposition home or self-care (01) ==
PROVIDERS: PCP Nurse Practitioner Family; Visit Provider Family Medicine
DX: R07.9 Chest pain, unspecified (principal)
CPT/HCPCS: 78452; 93017; A9500; J2785

== ENCOUNTER 2022-04-28 13:19 | Outpatient (CLI) | payer BC, SELFPAY ==
--- NOTE | 2022-04-28 13:37 | USCV_ITS ---
Aquilino Bauman Age: 41 Gender: M : 1980 Exam Date: 04/28/2022 13:48 Ordering Phys: Pamella Tapia MD ([email or web address]) Technologist: Exam Location: [facility] [place] Indication: chest pain BP: 125 / 80 HR: 62 Rhythm: Sinus Technical Quality: Good MEASUREMENTS (Male / Female) Normal Values 2D ECHO LV Diastolic Diameter PLAX 4.0 cm 4.2 - 5.9 / 3.9 - 5.3 cm LV Systolic Diameter PLAX 2.2 cm IVS Diastolic Thickness 1.0 cm 0.6 - 1.0 / 0.6 - 0.9 cm IVS Systolic Thickness 1.1 cm LVPW Diastolic Thickness 1.2 cm 0.6 - 1.0 / 0.6 - 0.9 cm LVPW Systolic Thickness 1.1 cm LVOT Diameter 2.1 cm LV Ejection Fraction 2D Teich 75.1 % LV Ejection Fraction MOD 2C 66.2 % LV Ejection Fraction 2C AL 66.9 % LA Diameter 3.7 cm Aorta at Sinotubular Diameter 3.1 cm IVC Diameter 1.3 cm M-MODE Aortic Annulus Diameter 3.5 cm LA Ao Ratio MM 1.1 MV E Point Septal Separation 0.5 cm DOPPLER AV Peak Velocity 126.0 cm/s LVOT Peak Velocity 81.0 cm/s AV Area Cont Eq vti 1.7 cm squared AV Area Cont Eq pk 2.2 cm squared MV Area PHT 5.0 cm squared Mitral E to A Ratio 0.8 MV E' Velocity 35.0 cm/s Mitral E to MV E' Ratio 7.7 Mitral E to LV E' Lateral Ratio 6.2 Mitral E to LV E' Septal Ratio 10.4 TR Peak Velocity 218.3 cm/s TR Peak Gradient 19.1 mmHg TV Peak E Velocity 67.0 cm/s Right Atrial Pressure 3.0 mmHg Pulmonary Artery Systolic Pressu 22.1 mmHg PV Peak Velocity 80.0 cm/s FINDINGS Left Ventricle Normal left ventricular size and systolic function, EF 62 %. No regional wall motion abnormalities. Mild left ventricular hypertrophy. Right Ventricle The right ventricle is normal in size and function. Right Atrium The right atrium is normal in size. Left Atrium The left atrium is normal in size. Mitral Valve Trace mitral valve regurgitation. Aortic Valve No gross abnormalities noted Tricuspid Valve Trace to mild tricuspid valve regurgitation. Pulmonic Valve Trace pulmonary valve regurgitation. Pericardium No pericardial effusion. Aorta Normal aortic annulus size. IVC The inferior vena cava pulmonary and hepatic veins appear normal. CONCLUSIONS Normal left ventricular size and systolic function, EF 62 %. No regional wall motion abnormalities. Mild left ventricular hypertrophy. Type I diastolic dysfunction. Trace mitral valve regurgitation. Trace to mild tricuspid valve regurgitation. No similar previous studies are available for comparison Dr Pamella Tapia MD [facility] (Electronically Signed) Final Date: 29 April 2022 07:34 S
== END 2022-04-28 13:20 | disposition home or self-care (01) ==
LOC: RAD 13:21
PROVIDERS: PCP Nurse Practitioner Family; Visit Provider Internal Medicine Cardiovascular Disease
DX: R07.9 Chest pain, unspecified (principal)
CPT/HCPCS: 93306

== ENCOUNTER 2022-05-31 15:55 | Emergency (ER) | payer BC, SELFPAY ==
--- NOTE | 2022-05-31 16:17 | XRR_ITS ---
PROCEDURE INFORMATION: Exam: XR Chest Exam date and time: 05/31/2022 4:35 PM Age: 41 years old Clinical indication: Angina; Additional info: Chest pain TECHNIQUE: Imaging protocol: Radiologic exam of the chest. Views: 1 view. COMPARISON: CR XR chest 1V portable [id number] 11/16/2021 2:04 AM FINDINGS: Lungs: Visualized portions of the lungs are clear. There is no pulmonary vascular congestion. Pleural spaces: Unremarkable. No pleural effusion. No pneumothorax. Heart/Mediastinum: Heart is within normal limits of size. Bones/joints: Unremarkable. XR/XR chest 1V portable [id number] IMPRESSION: No acute infiltrate.
--- NOTE | 2022-05-31 16:17 | ECG_ITS ---
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 Measurements Intervals [place] Rate: 81 P: 12 MS: 175 QRS: 29 QRSD: 91 T: 9 QT: 396 QTc: 461 Interpretive Statements SINUS RHYTHM WITH FREQUENT ECTOPIC PREMATURE COMPLEXES Compared to ECG 11/16/2021 02:10:15 No significant changes Electronically Signed On 06-01-2022 16:32:39 CDT by Tyrese Leyva M.D. [email or web address].[facility] centerN[facility].[employer]/store/NU/[id number] f
[2022-05-31 16:41] LABS: Basophils # 0.1 10^3/uL (0.0-0.1); Basophils % 1.8 %; Eosinophils % 0.7 %; Hematocrit 42.5 % (42.0-52.0); Hemoglobin 15.4 g/dL (11.7-16.6); Lymphocytes # 1.5 10^3/uL (0.8-4.8); Lymphocytes % 26.6 %; Mean Corpuscular HGB Conc 36.2 g/dL (30.0-36.0); Mean Corpuscular Volume 88.2 fl (80-94); Mean Platelet Volume 10.8 fL (7.4-10.4); Monocytes # 0.5 10^3/uL (0.2-0.9); Monocytes % 9.4 %; Neutrophils # 3.45 10^3/uL (1.8-7.7); Neutrophils % 61.1 %; Nucleated Red Blood Cells % 0 %; Platelet Count 196 10^3/cmm (130-400); Red Blood Count 4.82 10^6/uL (4.1-5.3); Red Cell Distribution Width 11.6 % (12.1-15.1); White Blood Count 5.6 10^3/uL (4.0-10.0)
--- NOTE | 2022-05-31 16:48 | W.ED.GENADLT ---
HPI - General Adult General: Chief complaint: Chest Pain Stated complaint: CHEST PAIN Time Seen by Provider: 05/31/22 16:16 History of Present Illness: This is a [41] yo patient w/ hx of family hx of cardiac disease, HTN, smoking presenting to the ED complaining of acute sudden onset intermittent chest pressure lasting for 30 minutes at a time with associated nausea vomiting diaphoresis. Pain is not tearing in nature and does not radiate to the back. Pain not associated with vomiting or PO intake. Denies any recent sympathomimetic drug use. Patient denies any cough. Denies palpitations, dysphagia, diaphoresis, radiation of pain to bilateral arms, jaw. Denies F/N/V/D. Patient denies any recent immobility, surgery, unilateral leg swelling, or prior PE. Patient denies any orthopnea. Patient reports that EMS was called, patient received aspirin nitro improvement pain. Arrival, patient reports tenderness to [place]. Onset:9am Duration: ongoing intermittently for the last 7 hrs Location: home Severity: moderate Associated symptoms: Reports chest pain; Deny dyspnea, nausea, rash, palpitations or vomiting Review of Systems Const: Denies: fever(s) or chills Eyes: Denies: change in vision ENMT: Denies: mouth pain Card: Reports: chest pain; Denies: palpitations Resp: Denies: dyspnea or non-productive cough GI: Denies: abdominal pain, nausea, vomiting or diarrhea : Denies: dysuria Musc: Denies: extremity pain Skin/Breast: Denies: rash or new lesions Neuro: Denies: weakness in extremities Psych: Reports: other (Normal mood) Bong/Lymph: Denies: easy bruising [facility] ED PFSH: Medical History (Updated 05/31/22 @ 16:51 by Gaudencio Adhikari MD) Calculus of kidney Hypertension Surgical History H/O shoulder surgery Family History Family/Other Cancer Prostate cancer CAD (coronary artery disease) Grandfather Prostate cancer Cancer Dementia Mother , AT AGE 31, [place] Heart attack CAD (coronary artery disease) Grandmother Cancer Father Chronic kidney disease (CKD) Denies family history of Diabetes Clotting disorder Suicide Anesthesia complication Bleeding disorder Lung disease Stroke Social History Smoking and tobacco status: current every day smoker smokeless tobacco Alcohol intake: current Alcohol intake frequency: holidays/special occasions only Marital status: Current occupational status: employed History of recent travel: No Physical Exam Const: COMMON NORMALS: alert HENMT: COMMON NORMALS: atraumatic HEAD & SCALP: atraumatic MOUTH: moist mucous membranes not abnormal Eye: COMMON NORMALS: EOMs intact bilaterally and conjunctivae normal CONJUNCTIVA: Yes conjunctivae normal Neck/C-Spine: COMMON NORMALS: full ROM and supple Resp: COMMON NORMALS: normal respiratory effort and clear to auscultation bilaterally AUSCULTATION: clear to auscultation bilaterally Cardio: COMMON NORMALS: regular rate RATE: regular rate OTHER: 2+ radial pulses b/l GI: COMMON NORMALS: Soft to palpation and non-tender PALPATION: Yes Soft to palpation OTHER: No focal TTP. NO guarding rebound, guarding, rigidity. No CVA tenderness to percussion.Neg McBurney's point tenderness, no suprabupic tenderness to palpation. Extremity: COMMON NORMALS: full ROM Neuro: SENSORIUM/ORIENTATION: Yes alert MOTOR EXAM: No Abnormal motor strength present and Other motor observations present (no focal motor deficits) Psych: COMMON NORMALS: speech normal SPEECH: Yes normal speech MOOD & AFFECT: Yes euthymic mood Course Vital Signs: Vital signs: Vital Signs Temperature 98.2 F 05/31/22 17:02 Pulse Rate 64 05/31/22 20:38 Respiratory Rate 16 05/31/22 20:38 Blood Pressure 146/90 05/31/22 20:38 Pulse Oximetry 96 05/31/22 20:38 MDM - General Adult Medical Decision Making [41]yo patient w/ hx of family hx of cardiac disease, HTN, smoking presenting to the ED with evaluation of new onset of intermittent chest pressure since 9am. HDS, pulse 2+ radially bilaterally, no signs of fluid overload, AAOx3, neuro exam intact. Given History and Exam today I have no suspicion for ACS, Pneumothorax, Pneumonia, Pulmonary Embolus, Tamponade, Aortic Dissection or other emergent problems as a cause for this presentation. EMS gave patient ASA 325mg and nitro SL Workup: ECG x 2, CXR, CBC, BMP, Troponin x 2 Interventions: morphine Findings: ECG: No overt evidence of STEMI, hyperacute T waves, localizable STD or T wave inversions. No evidence of Brugada?s sign, delta wave, epsilon wave, significantly prolonged QTc, or malignant arrhythmia. No Q waves. Other Labs unremarkable for emergent problems. CXR: Without PTX, PNA, or widened mediastinum Last Stress Test: 04/20 - un remarkable Last Heart Catheterization: never [8:43] On reassessment, the patient is HDS, troponin x2 within normal limit, EKG is nonischemic. Patient has no complaints of chest pain. Patient has had a previous stress test on 04/20 which was unremarkable. In addition, patient has followed up with Dr. Tapia. At the present time, I do not suspect the patient has ACS or unstable angina. Patient has a heart score of (3 - story, risk factors -2). Since patient has had prior evaluation that were negative, I have offered patient admission to be seen by different satellite specialist should he want it. However patient upon hearing this decided to go home. I have explained the risk of leaving today which includes possible cardiac dysrhythmia [place] and even . Patient verbalized understand the risks of going home today and elects for the alternative going home today. Have given patient strict return precaution for any worsening pain, shortness of breath, lightheadedness, or any new concerning complaints. In addition, patient request to be seen with Dr. Vega Almodovar. I will make patient referral to be seen by Dr. Almodovar for complaints of chest pain. In addition patient wanted to be seen by another satellite specialist other than Dr. Tapia. I will have patient be seen by another satellite specialist. I have given patient follow up with our case investigator to be seen by Dr. Guzman per patient request next week. Patient aware of a call from our case investigator to schedule for appointment(s) and verbalizes understanding of the importance of following up. I have given patient follow up with our case investigator to be seen by our outpatient Cardiology for further assessment of symptoms.. Patient aware of a call from our case investigator to schedule for appointment(s) and verbalizes understanding of the importance of following up. Lab Data : 05/31/22 16:25 05/31/22 18:29 Radiology Impressions Chest X-Ray 05/31/22 16:17 IMPRESSION: No acute infiltrate. Laboratory Results WBC 5.6 10^3/uL (4.0-10.0) 05/31/22 16:25 RBC 4.82 10^6/uL (4.1-5.3) 05/31/22 16:25 Hgb 15.4 g/dL (11.7-16.6) 05/31/22 16:25 Hct 42.5 % (42.0-52.0) 05/31/22 16:25 MCV 88.2 fl (80-94) 05/31/22 16:25 MCH 32.0 pg (28.0-34.0) 05/31/22 16:25 MCHC 36.2 g/dL (30.0-36.0) H 05/31/22 16:25 RDW 11.6 % (12.1-15.1) L 05/31/22 16:25 Plt Count 196 10^3/cmm (130-400) 05/31/22 16:25 MPV 10.8 fL (7.4-10.4) H 05/31/22 16:25 Neut % (Auto) 61.1 % 05/31/22 16:25 Lymph % (Auto) 26.6 % 05/31/22 16:25 [place] % (Auto) 9.4 % 05/31/22 16:25 Eos % (Auto) 0.7 % 05/31/22 16:25 Baso % (Auto) 1.8 % 05/31/22 16:25 Neut # (Auto) 3.45 10^3/uL (1.8-7.7) 05/31/22 16:25 Lymph # (Auto) 1.5 10^3/uL (0.8-4.8) 05/31/22 16:25 [place] # (Auto) 0.5 10^3/uL (0.2-0.9) 05/31/22 16:25 Eos # (Auto) 0.0 10^3/uL (0.0-0.8) 05/31/22 16:25 Baso # (Auto) 0.1 10^3/uL (0.0-0.1) 05/31/22 16:25 Nucleated RBC % (auto) 0 % 05/31/22 16:25 Nucleated RBCs # 0.0 /100WBC 05/31/22 16:25 Sodium 137 mmol/L (136-145) 05/31/22 18:29 Potassium 3.3 mmol/L (3.5-5.1) L 05/31/22 18:29 Chloride 100 mmol/L (98-107) 05/31/22 18:29 Carbon Dioxide 22 mmol/L (22-29) 05/31/22 18:29 Anion Gap 18.3 (5-19) 05/31/22 18:29 BUN 12 mg/dL (6-20) 05/31/22 18:29 Creatinine 0.9 mg/dL (0.7-1.2) 05/31/22 18:29 GFR Calculation 92.1 mL/min (90-130) 05/31/22 18:29 Glucose 95 mg/dL (65-115) 05/31/22 18:29 Calculated Osmolality 284 mOsm/kg (285-295) L 05/31/22 18:29 Calcium 8.5 mg/dL (8.5-10.5) 05/31/22 18:29 Troponin T Baseline 6 ng/L (0-15) 05/31/22 16:25 Troponin T 120 Minute 6.00 ng/L (0-15) 05/31/22 18:29 Delta Troponin T 0 ABS# (0-10) 05/31/22 18:29 Imaging Data Other Imaging: Radiologist's impression: [address] [address] XRay Report Signed Patient: Aquilino Bauman Unit #: [id number] : 1980 Age/Sex: 41 / M ADM Date: 05/31/22 Loc: ER Room/Bed: Attending Dr: Ordering Provider/Ordering MD: Gaudencio Adhikari MD Date of Service: 05/31/22 Procedure(s): XR chest 1V portable [id number] Accession Number(s): [id number] Report Number: [id number] PROCEDURE INFORMATION: Exam: XR Chest Exam date and time: 05/31/2022 4:35 PM Age: 41 years old Clinical indication: Angina; Additional info: Chest pain TECHNIQUE: Imaging protocol: Radiologic exam of the chest. Views: 1 view. COMPARISON: CR XR chest 1V portable [id number] 11/16/2021 2:04 AM FINDINGS: Lungs: Visualized portions of the lungs are clear. There is no pulmonary vascular congestion. Pleural spaces: Unremarkable. No pleural effusion. No pneumothorax. Heart/Mediastinum: Heart is within normal limits of size. Bones/joints: Unremarkable. XR/XR chest 1V portable [id number] IMPRESSION: No acute infiltrate. ? Dictated By: Jeffy Ritter Signed By: Jeffy Ritter Signed Date/Time: 05/31/22 171 DD/ 1635 Discharge Plan Discharge Patient Disposition: Home Clinical Impression: Chest pain Condition: Stable Prescriptions: No Action pantoprazole 40 mg tablet,delayed release (DR/EC) 40 mg PO QAM 0RF metoprolol tartrate 25 mg tablet 12.5 mg PO BID Qty: 90 3RF Aspir-81 81 mg Tablet,Delayed Release (Dr/Ec) 324 mg PO .ONCE 0RF Pepcid AC 20 mg Tablet 20 mg PO BEDTIME 0RF magnesium oxide 400 mg magnesium Tablet 400 mg PO BEDTIME 0RF Discharge Orders: Discharge ED (Routine); Ordered 05/31/22 Ordered By: Gaudencio Adhikari Referrals: Yolanda Dunaway APN [Primary Care Provider] - Discharge Diet: Advance as tolerated Discharge Activity: Increase activity as tolerated Patient Instructions: Chest Pain (ED) Activity Restrictions/Additional Instructions: Come back to the emergency room if your chest pain worsens, have any fever or chills, worsening shortness of breath, worsening exertional lightheadedness, or any new or concerning complaints. Our case investigator will have you follow-up with [] in the next few days. You would be expected to have a phone call with our case investigator who will put you on the schedule. You can expect a call from us in the next 2-3 days. If you don't hear from us, call us back in the emergency room at [phone]. Coding Level of Care Code ED Engineering Agent for [place] Exam Comprehensive
[2022-05-31 17:02] VITALS: BP 114/86; PULSE 73; RESP 18; TEMP 36.8; O2SAT 96
[2022-05-31 17:21] LABS: Troponin(5th) Baseline 6 ng/L (0-15)
[2022-05-31 17:30] VITALS: BP 113/84; PULSE 72; RESP 16; O2SAT 95
--- NOTE | 2022-05-31 18:17 | ECG_ITS ---
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 Measurements Intervals [place] Rate: 58 P: 10 MI: 156 QRS: 34 QRSD: 92 T: 3 QT: 413 QTc: 406 Interpretive Statements SINUS BRADYCARDIA Compared to ECG 11/16/2021 02:10:15 Sinus rhythm no longer present Electronically Signed On 05-31-2022 21:07:42 CDT by Pamella Tapia M.D. [email or web address] at gulfportAdRollkettering [facility] main campus[x+1]/store/OM/[id number]
[2022-05-31 19:47] LABS: Troponin 5 2HR Delta 0 ABS# (0-10)
[2022-05-31 20:00] VITALS: BP 132/83; PULSE 66; RESP 22; O2SAT 97
[2022-05-31 20:29] LABS: Anion Gap 18.3 (5-19); Blood Urea Nitrogen 12 mg/dL (6-20); Calcium 8.5 mg/dL (8.5-10.5); Carbon Dioxide 22 mmol/L (22-29); Chloride 100 mmol/L (98-107); Glomerular Filtration Rate 92.1 mL/min (90-130); Glucose 95 mg/dL (65-115); Osmolality Calculated 284 mOsm/kg (285-295); Potassium 3.3 mmol/L (3.5-5.1); Sodium 137 mmol/L (136-145)
[2022-05-31 20:38] VITALS: BP 146/90; PULSE 64; RESP 16; O2SAT 96
--- NOTE | 2022-06-01 14:15 | DCPLANNER ---
Addendum entered by Joan Hicks 07/21/22 09:14: Patient had a follow u appointment scheduled for 06.27.[address] Almodovar - patient did attend appointment Patient had follow up appointment scheduled for 07.08.22 with heart care - patient did not attend appointment. Addendum entered by Joan Hicks 06/07/22 15:30: Patient has a follow up appointment scheduled for Friday July 08, 2022 at 11:[address] Leyva at [facility]. Clinic will call patient with appointment information. Patient has a follow up appointment scheduled for Monday, June 27, 2022 at 1:[address] Almodovar. Clinic will call patient with appointment information. Original Note: mine engineering manager had message to schedule a follow up appointment for patient with Dr. Almodovar, for primary care. mine engineering manager sent patients information to the front office staff at internal medicine. Patients information will be printed and reviewed. [facility] will call patient with appointment information.
== END 2022-05-31 20:46 | disposition home or self-care (01) ==
PROVIDERS: Emergency Provider Emergency Medicine; PCP Nurse Practitioner Family
DX: R07.9 Chest pain, unspecified (principal); Z79.82 Long term (current) use of aspirin; I10 Essential (primary) hypertension; F17.210 Nicotine dependence, cigarettes, uncomplicated
CPT/HCPCS: 71045; 80048; 84484; 85025; 93005; 99285